=== PATIENT | male | born 1970 | race American Indian/Alaskan Native ===

== ENCOUNTER 2019-03-26 11:41 | Emergency (ER) | payer SELFPAY ==
--- NOTE | 2019-03-26 11:56 | Emergency Department Report ---
Blank Doc - Documentation Documentation: 49-year-old male that presents with left anterior femur pain after heavy lifting at work. This initial assessment/diagnostic orders/clinical plan/treatment(s) is/are subject to change based on patient's health status, clinical progression and re- assessment by fellow clinical providers in the ED. Further treatment and workup at subsequent clinical providers discretion. Patient/guardians urged not to elope from the ED as their condition may be serious if not clinically assessed and managed. Initial orders include: 1- Patient sent to [facility] for further evaluation and treatment 2- xrays
[2019-03-26 11:57] VITALS: BP 108/62
--- NOTE | 2019-03-26 12:40 | XRay Report ---
2 views of the left femur INDICATION / CLINICAL INFORMATION: left leg pain. COMPARISON: None available. FINDINGS: BONES/JOINT(S): No acute fracture or subluxation. No significant degenerative changes. SOFT TISSUES: No significant abnormality. ADDITIONAL FINDINGS: None. Signer Name: Marbin Cortes MD Signed: 03/26/2019 12:36 PM Workstation Name: [id number]
--- NOTE | 2019-03-26 13:16 | Emergency Department Report ---
HPI - General Chief Complaint: Extremity Injury, Lower Time Seen by Provider: 03/26/19 11:54 - HPI HPI: 49-year-old -N[place]alese male presents to the emergency department with a 2- 3 day history of atraumatic left thigh pain. The pain worsens when he is walking, going upstairs or exertional. He denies any swelling of the leg, skin color change, rash or lesions. He tried some Aleve for his symptoms with some transient relief. Denies any past medical history. No recent travel, surgeries, immobility. ED Past Medical Hx - Past Medical History Previous Medical History?: No - Surgical History Past Surgical History?: No - Social History Smoking Status: Current Every Day Smoker Substance Use Type: Alcohol, Marijuana - Medications Home Medications: Home Medications Medication Instructions Recorded Confirmed Last Taken Type Cyclobenzaprine [Flexeril] 10 mg PO TID PRN #12 tablet 03/26/19 Unknown Rx Ibuprofen [Motrin 400 MG tab] 400 mg PO Q8H PRN #20 tablet 03/26/19 Unknown Rx ED Review of Systems ROS: Stated complaint: LFT LEG PAIN Other details as noted in HPI Comment: All other systems reviewed and negative Constitutional: denies: chills, fever Cardiovascular: denies: edema Musculoskeletal: arthralgia, myalgia. denies: joint swelling Skin: denies: rash, lesions Neurological: denies: weakness, numbness, paresthesias Physical Exam - Physical Exam Vital Signs: Vital Signs 03/26/19 11:54 Temperature 98.3 F Pulse Rate 79 Respiratory 18 Rate Blood Pressure 108/62 O2 Sat by Pulse 96 Oximetry Physical Exam: GENERAL: The patient is well-developed well-nourished. HENT: Normocephalic. Atraumatic. Patient has moist mucous membranes. EYES: Extraocular motions are intact. NECK: Supple. Trachea is midline. CHEST/LUNGS: Clear to auscultation. There is no respiratory distress noted. HEART/CARDIOVASCULAR: Regular. There is no tachycardia. There is no murmur. ABDOMEN: There is no abdominal distention. SKIN: Skin is warm and dry. NEURO: The patient is awake, alert, and oriented. The patient is cooperative. The patient has no focal neurologic deficits. Normal speech. MUSCULOSKELETAL: There is some reproducible tenderness to palpation along the left mid thigh. No obvious deformity. There is no limitation range of motion. ED Course Vital Signs 03/26/19 11:54 Temperature 98.3 F Pulse Rate 79 Respiratory 18 Rate Blood Pressure 108/62 O2 Sat by Pulse 96 Oximetry ED Medical Decision Making - Radiology Data Radiology results: report reviewed, image reviewed interpreted by me: X-ray of the left femur does not show any fracture, dislocation or any acute process. Left lower extremity venous Doppler ultrasound is negative for DVT - Medical Decision Making This patient presents with some atraumatic left leg pain, mostly in the thigh. It is reproducible to palpation but there is no obvious deformity. An x-ray was done of the femur that does not show any fracture, dislocation or any acute process. Venous Doppler ultrasound negative for DVT. Vital signs stable throughout his ED course. The patient was able to display his ability to ambulate and appears stable. He'll be placed on anti-inflammatories, muscle relaxers, and will be given a referral for a local orthopedist. He will return to the emergency Department with any worsening of his symptoms or any acute distress. - Differential Diagnosis stress fracture, muscle spasm, DVT, muscle sprain/strain Critical Care Time: No Critical care attestation.: If time is entered above; I have spent that time in minutes in the direct care of this critically ill patient, excluding procedure time. ED Disposition Clinical Impression: Left thigh pain Disposition: - TO HOME OR SELFCARE Is pt being admited?: No Condition: Stable Instructions: Arthralgia (ED), Muscle Spasm (ED) Additional Instructions: Please follow-up with a primary care physician in the next few days. I am also giving you a referral for a local orthopedist, Dr. Niño, to follow up regarding your left leg/thigh pain. Return to the emergency Department with any worsening of your symptoms or any acute distress. You have been prescribed a medication that is sedating and therefore should not be taken prior to driving, working, and responsible for children and in no way should be mixed with alcohol of any quantity. Prescriptions: Cyclobenzaprine [Flexeril] 10 mg PO TID PRN #12 tablet PRN Reason: Muscle Spasm Ibuprofen [Motrin 400 MG tab] 400 mg PO Q8H PRN #20 tablet PRN Reason: Pain , Severe (7-10) Referrals: TAMERA NIÑO MD [Staff Physician] - 3-5 Days Forms: Work/School Release Form(ED) Time of Disposition: 14:18
--- NOTE | 2019-03-26 13:43 | Vascular Lab Report ---
DUPLEX DOPPLER LOWER EXTREMITY VEINS, LEFT INDICATION / CLINICAL INFORMATION: LLE pain. TECHNIQUE: Duplex doppler imaging was performed through the veins of the left lower extremity using venous compr ession and other maneuvers. COMPARISON: None available. FINDINGS: COMMON FEMORAL VEIN: Negative. FEMORAL VEIN: Negative. POPLITEAL VEIN: Negative. CALF VEINS: Negative. ADDITIONAL FINDINGS: None. IMPRESSION: 1. No sonographic evidence for DVT in the left lower extremity. Signer Name: Iris Doan MD Signed: 03/26/2019 1:39 PM Workstation Name: [id number]
== END 2019-03-26 14:47 | disposition home or self-care (01) ==
LOC: ED 11:41
DX: M79.652 Pain in left thigh (principal); F17.200 Nicotine dependence, unspecified, uncomplicated; F12.10 Cannabis abuse, uncomplicated; Z79.899 Other long term (current) drug therapy